=== PATIENT | female | born 1970 | race Caucasian/White ===

== ENCOUNTER 2024-05-12 06:15 | Day surgery (SDC) | payer MEDICAID ==
[~2024-05-12 06:15] MED LIST: Sodium Chloride 0.9% 10 ML Syringe FLUSH PRN
[2024-05-12] MEDS ORDERED: Dexamethasone 4 MG/ML SDV IV ONE (06:16)
[2024-05-12] MEDS ORDERED: Flumazenil 0.1 MG/ML 5 ML MDV IV ONE (06:16)
[2024-05-12] MEDS ORDERED: fentaNYL 100 MCG/2 ML SDV IV ONE (06:16)
[2024-05-12] MEDS ORDERED: dexmedeTOMIDine HCl 200 MCG/2 ML SDV IV ONE (06:16)
[2024-05-12] MEDS ORDERED: Ketamine 500 mg/10 ML MDV IV ONE (06:16)
[2024-05-12] MEDS ORDERED: Midazolam 1 MG/ML 2 ML SDV IV ONE (06:16)
[2024-05-12] MEDS ORDERED: Ondansetron 4 MG/2 ML SDV IVPUSH ONE (06:16)
[2024-05-12] MEDS: Lactated Ringers 1,000 ML IV SCH (07:01)
[2024-05-12] MEDS: Simethicone Drops 40 MG/0.6 ML 30 ML Bottle ONE (07:30)
== END 2024-05-12 10:40 | disposition home or self-care (01) ==
LOC: FB.SDS 06:15
PROVIDERS: ATTEND Surgery
DX: Z12.11 Encounter for screening for malignant neoplasm of colon (principal); K62.1 Rectal polyp; K52.9 Noninfective gastroenteritis and colitis, unspecified; Z86.0101 Personal history of adenomatous and serrated colon polyps; K21.9 Gastro-esophageal reflux disease without esophagitis; E78.5 Hyperlipidemia, unspecified; F32.0 Major depressive disorder, single episode, mild; Z87.891 Personal history of nicotine dependence; Z79.899 Other long term (current) drug therapy
CPT/HCPCS: 00811; 45380; 45384; 45385; 88305; A9270; J1100; J2250; J2405; J3010; J3490; J7120